=== PATIENT | female | born 2000 | race Hispanic/Latino ===

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

== ENCOUNTER 2021-04-26 12:45 | Emergency (ER) | payer MEDICAID ==
--- OUTSIDE RECORDS SUMMARY | 2021-04-26 12:48 | XMS REPORT | Continuity of Care Document ---
:2000 Author Organization [facility] t Address [address] [place] [address] Care Team Providers Name Role Phone Skye Aparicio Attending Clinician 2, Mfm Usg Room Attending Clinician Unavailable Hosea Aguirre Attending Clinician Luca Grier DO Attending Clinician 1, Us Room Attending Clinician Unavailable Lab/Pedi Attending Clinician Unavailable Doctor Unassigned, Name Attending Clinician Unavailable Problems Condition Condition Condition Status Onset Resolution Last Treating Co mments Source Name Details Category Date Date Treatment Clinician Date Vaginal Vaginal Problem Active [facility] Normal Normal Problem Active [facility] first first [facility] in third in third l trimester trimester Outp ati ent Clinics Encounter Encounter Problem Active [facility] for for [facility] surveillan surveillan Me moria ce of ce of l injectable injectable Ou tpati contracept contracept en t [facility] GBS (group GBS (group Problem Active [facility] Streptococ Streptococ Me moria cus cus l carrier), carrier), Outp ati +RV +RV ent culture, culture, Clinic s currently currently Surveillan Surveillan Diagnosis Active [facility] ce of ce of [facility] - contracept contracept Me moria shlomo shlomo l implant implant Outpati ent Clinics Allergies, Adverse Reactions, Alerts This patient has no known allergies or adverse reactions. Medications This patient has no known medications. Procedures This patient has no known procedures. Encounters Start End Encounter Admission Attending Care Care Encounter Source Date/Time Date/Time Type Type Clinicians Facility Department ID 2021-04-24 2021-04-24 Routine LETITIA Shields [id number] 12:52:33 13:26:57 Marlee N PATIENT RELATIONS LIAISON [id number] Visit REGIONAL [id number] MATERNAL [id number] & CHILD 107 [facility] 2021-04-03 2021-04-[address] Tech 2, [facility] [id number] 13:18:36 14:59:37 Visit [facility] [id number] CLINICS [id number] 2021-03-27 2021-03-27 Routine LETITIA Shields [id number] 13:06:43 13:52:18 Marlee N PATIENT RELATIONS LIAISON [id number] Visit REGIONAL [id number] MATERNAL [id number] & CHILD 107 [facility] 2021-03-13 2021-03-13 Telephone LETITIA Coleman [id number] 00:00:00 00:00:00 Oni Jc PATIENT RELATIONS LIAISON [id number] REGIONAL [id number] MATERNAL [id number] & CHILD 107 [facility] 2021-02-20 2021-02-20 Patient LETITIA Grier [id number] 00:00:00 00:00:00 Outreach [facility] [id number] [facility] [id number] PAVRICARDOON [id number] 2021-02-19 2021-02-19 Routine LETITIA Shields [id number] 15:13:06 15:44:33 Marlee N PATIENT RELATIONS LIAISON [id number] Visit REGIONAL [id number] MATERNAL [id number] & CHILD 107 [facility] 2021-02-16 2021-02-16 Telephone LETITIA Shields [id number] 00:00:00 00:00:00 Marlee N PATIENT RELATIONS LIAISON [id number] REGIONAL [id number] MATERNAL [id number] & CHILD 107 [facility] 2021-02-09 2021-02-[address] 1, Kira [facility] [id number] 12:59:19 13:44:19 Visit Us Room PATIENT RELATIONS LIAISON 350.1.13.10 REGIONAL [id number] MATERNAL [id number] & CHILD 369 [facility] 2021-02-09 2021-02-[address] Tech Lab/Maria M [facility] [id number] 13:36:38 13:36:47 Visit [facility] PATIENT RELATIONS LIAISON 350.1.13.10 REGIONAL [id number] MATERNAL [id number] & CHILD 125 [facility] 2021-02-06 2021-02-06 Routine Cornelius [facility] [id number] 12:46:38 13:02:53 Marlee N PATIENT RELATIONS LIAISON 350.1.13.10 Visit REGIONAL [id number] MATERNAL [id number] & CHILD 107 [facility] 2020-12-14 2020-12-14 Telephone Cornelius [facility] [id number] 00:00:00 00:00:00 Marlee N PATIENT RELATIONS LIAISON [id number] REGIONAL [id number] MATERNAL [id number] & CHILD 107 [facility] 2020-12-12 2020-12-12 [facility] [id number] 14:00:56 14:47:42 Marlee N PATIENT RELATIONS LIAISON 350.1.13.10 Visit REGIONAL [id number] MATERNAL [id number] & CHILD 107 [facility] 2020-12-12 2020-12-12 Orders Doctor KENNEDY [id number] 00:00:00 00:00:00 Only Unassigned, ELVIRA 350.1.13.10 Cornelia [facility] [id number] [id number] 2019-01-06 2019-01-06 [facility] [id number] [facility] 14:30:00 14:30:00 t [facility] 2018-12-16 2018-12-16 [facility] [id number] [address] 14:30:00 14:30:00 t [facility] 2018-12-10 2018-12-10 [facility] [id number] [address] 11:09:00 11:09:00 t [facility] 2018-04-06 2018-04-06 [facility] [id number] [address] 14:45:00 14:45:00 t [facility] Results This patient has no known results.
[2021-04-26 14:34] LABS: SARS-COV-2 RT PCR NEGATIVE (NEGATIVE)
--- NOTE | 2021-04-26 15:02 | ER ---
Nurse's Notes [facility] Name: Fernanda Morris Age: 20 yrs Sex: Female : 2000 Arrival Date: 04/26/2021 Time: 12:49 Bed 18 Private MD: Diagnosis: Acute pharyngitis Presentation: 04/26 12:51 Chief complaint: Patient states: congestion, sore throat, headache, N/V since ca1 yesterday. 6 months . Coronavirus screen: Client denies travel out of the [place] in the last 14 days. congestion, headache, nausea, sore throat, vomiting. Client presents with at least one sign or symptom that may indicate coronavirus-19. Standard/surgical mask placed on the client. Provider contacted for isolation considerations. Ebola Screen: Patient negative for fever greater than or equal to 101.5 degrees Fahrenheit, and additional compatible Ebola Virus Disease symptoms Patient denies exposure to infectious person. Patient denies travel to an Ebola-affected area in the 21 days before illness onset. No symptoms or risks identified at this time. Initial Sepsis Screen: Does the patient meet any 2 criteria? No. Patient's initial sepsis screen is negative. Does the patient have a suspected source of infection? No. Patient's initial sepsis screen is negative. Risk Assessment: Do you want to hurt yourself or someone else? Patient reports no desire to harm self or others. Onset of symptoms was April 26, 2021. 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 Flu vaccine is not up to date. - Social history:: Smoking status: Patient/guardian denies using tobacco, Stopped _ months ago 6. Screenin:34 Abuse screen: Denies threats or abuse. Denies injuries from another. Nutritional ld1 screening: No deficits noted. Tuberculosis screening: No symptoms or risk factors identified. Fall Risk None identified. Assessment: 13:34 General: Appears in no apparent distress. comfortable, Behavior is calm, cooperative, ld1 appropriate for age. Pain: Denies pain. Neuro: Level of Consciousness is awake, alert, obeys commands, Oriented to person, place, time, situation. Cardiovascular: Capillary refill < 3 seconds Patient's skin is warm and dry. Cardiovascular:. Respiratory: Airway is patent Respiratory effort is even, unlabored, Respiratory pattern is regular, symmetrical, Breath sounds are clear bilaterally. GI: Abdomen is round Pt states she is 6 months . Reports nausea, vomiting. : No signs and/or symptoms were reported regarding the genitourinary system. EENT: Throat is reddened. Derm: No signs and/or symptoms reported regarding the dermatologic system. Musculoskeletal: No signs and/or symptoms reported regarding the musculoskeletal system. 14:26 Reassessment: No changes from previously documented assessment. Patient and/or family ld1 updated on plan of care and expected duration. Pain level reassessed. Patient is alert, oriented x 3, equal unlabored respirations, skin warm/dry/pink. Laying in bed with family at bedside. Waiting on results. Denies concerns at this time. Patient denies pain at this time. 15:10 Reassessment: No changes from previously documented assessment. Patient and/or family ld1 updated on plan of care and expected duration. Pain level reassessed. Patient is alert, oriented x 3, equal unlabored respirations, skin warm/dry/pink. Vital Signs: 12:51 BP 108 / 63; Pulse 93; Resp 16 S; Temp 97.7; Pulse Ox 99% on R/A; Weight 93.44 kg (R); ca1 Height 5 ft. 8 in. (172.72 cm) (R); Pain 0/10; 13:04 BP 104 / 62; Pulse 97; Resp 16; Pulse Ox 98% on R/A; vg1 14:26 BP 116 / 82; Pulse 86; Resp 18; Pulse Ox 100% on R/A; ld1 14:44 BP 137 / 74; Pulse 98; Pulse Ox 100% ; mb4 15:10 BP 128 / 78; Pulse 92; Resp 18; Pulse Ox 100% on R/A; ld1 12:51 Body Mass Index 31.32 (93.44 kg, 172.72 cm) ca1 ED Course: 12:49 Patient arrived in ED. ds1 12:53 Triage completed. ca1 12:54 Ming Brooks PA is PHCP. [facility] 12:54 Ambrocio Lopez MD is Attending Physician. [facility] 12:54 Arm band placed on right wrist. ca1 13:34 Tiffanie Knutson, RN is Primary Nurse. ld1 13:34 Patient has correct armband on for positive identification. Bed in low position. Call ld1 light in reach. Pulse ox on. NIBP on. Door closed. Noise minimized. Warm blanket given. 13:50 COVID swab sent to lab. Flu and/or RSV swab sent to lab. Strep swab sent to lab. mb4 15:11 No provider procedures requiring assistance completed. Patient did not have IV access ld1 during this emergency room visit. Administered Medications: No medications were administered Outcome: 15:02 Discharge ordered by . [facility] 15:11 Discharged to home ambulatory. ld1 15:11 Condition: stable 15:11 Discharge instructions given to patient, family, Instructed on discharge instructions, follow up and referral plans. medication usage, Demonstrated understanding of instructions, follow-up care, medications. 15:12 Patient left the ED. ld1 Signatures: Ming Brooks PA PA [facility] Diana Theodore ds1 Alejandra Ramirez 4 Nicole Helm RN RN ca1 Estephania Fuentes RN RN vg1 Tiffanie Knutson, RN RN ld1 Corrections: (The following items were deleted from the chart) 12:54 12:51 Chief complaint: Patient states: congestion, sore throat, headache, N/V since ca1 yesterday ca1 13:38 13:34 GI: Abdomen is round Pt states she is 6 months . ld1 ld1 14:28 14:26 Pulse 99bpm; Resp 24bpm; Pulse Ox 100% RA; ld1 ld1
--- NOTE | 2021-04-26 15:03 | EDPHYS ---
Physician Documentation [facility] Name: Fernanda Morris Age: 20 yrs Sex: Female : 2000 Arrival Date: 04/26/2021 Time: 12:49 Bed 18 Private MD: ED Physician Ambrocio Lopez HPI: 04/26 13:02 This 20 yrs old Female presents to ER via Ambulatory with complaints of Sore jmm Throat, Congestion. 13:02 The patient presents with sore throat. Onset: The symptoms/episode began/occurred jmm gradually, 1 day(s) ago. Modifying factors: The symptoms are alleviated by nothing, the symptoms are aggravated by nothing. Associated signs and symptoms: Pertinent positives: rhinorrhea, Pertinent negatives fever. This is a 20 year old female with no chronic medical conditions that presents to the ED with complaints of sore throat and sinus congestion beginning approx 1 days ago. Denies shortness of breath. . 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 Flu vaccine is not up to date. - Social history:: Smoking status: Patient/guardian denies using tobacco, Stopped _ months ago 6. ROS: 13:02 Constitutional: Positive for jmm 13:02 Constitutional: Positive for chills. 13:02 ENT: Positive for sinus congestion, sore throat. 13:02 All other systems are negative. Exam: 13:02 Constitutional: This is a well developed, well nourished patient who is awake, alert, jmm and in no acute distress. Head/Face: atraumatic. Eyes: EOMI, no conjunctival erythema appreciated ENT: Moist Mucus Membranes Neck: Trachea midline, Supple 13:02 Cardiovascular: Regular rate and rhythm. No edema appreciated Respiratory: Normal respirations, no respiratory distress appreciated Abdomen/GI: Non distended, soft Back: Normal ROM Skin: General appearance color normal MS/ Extremity: Moves all extremities, no obvious deformities appreciated, no edema noted to the lower extremities Neuro: Awake and alert, normal gait Psych: Behavior is normal, Mood is normal, Patient is cooperative and pleasant 13:02 ENT: Posterior pharynx: Tonsils: enlarged on the right, enlarged on the left, erythema, that is mild. Vital Signs: 12:51 BP 108 / 63; Pulse 93; Resp 16 S; Temp 97.7; Pulse Ox 99% on R/A; Weight 93.44 kg (R); ca1 Height 5 ft. 8 in. (172.72 cm) (R); Pain 0/10; 13:04 BP 104 / 62; Pulse 97; Resp 16; Pulse Ox 98% on R/A; vg1 14:26 BP 116 / 82; Pulse 86; Resp 18; Pulse Ox 100% on R/A; ld1 14:44 BP 137 / 74; Pulse 98; Pulse Ox 100% ; mb4 15:10 BP 128 / 78; Pulse 92; Resp 18; Pulse Ox 100% on R/A; ld1 12:51 Body Mass Index 31.32 (93.44 kg, 172.72 cm) ca1 MDM: 13:[address] [facility] 15:01 Data reviewed: vital signs, nurses notes. Counseling: I had a detailed discussion with melvin the patient and/or guardian regarding: the historical points, exam findings, and any diagnostic results supporting the discharge/admit diagnosis, the need for outpatient follow up, to return to the emergency department if symptoms worsen or persist or if there are any questions or concerns that arise at home. 04/26 13:25 Order name: Strep; Complete Time: 14:14 [facility] 04/26 14:14 Order name: Throat Culture [facility] 04/26 14:34 Order name: COVID-19/FLU A+B; Complete Time: 14:50 EDME Administered Medications: No medications were administered Disposition: 15:52 Co-signature as Attending Physician, Ambrocio Lopez MD I agree with the assessment and kdr plan of care. Disposition: 04/26/21 15:02 Discharged to Home. Impression: Acute pharyngitis. - Condition is Stable. - Discharge Instructions: Pharyngitis. - Prescriptions for Amoxicillin 875 mg Oral Tablet - take 1 tablet by ORAL route every 12 hours for 10 days; 20 tablet. - Medication Reconciliation Form, Thank You Letter, Antibiotic Education, Prescription Opioid Use form. - Follow up: Private Physician; When: 2 - 3 days; Reason: Recheck today's complaints, Continuance of care, Re-evaluation by your physician. Signatures: Dispatcher [employer] EDMS Ambrocio Lopez MD MD kdr Mickail, Joel, PA PA jmm Acob, Cheryl RN RN ca1 Tiffanie Knutson RN RN ld1 Corrections: (The following items were deleted from the chart) 13:51 13:26 CORONAVIRUS+MR.LAB.BRZ ordered. EDMS EDMS 13:52 13:26 Influenza Screen (A \T\ B)+BA.LAB.BRZ ordered. EDME EDMS 15:12 15:02 04/26/2021 15:02 Discharged to Home. Impression: Acute pharyngitis. Condition is ld1 Stable. Forms are Medication Reconciliation Form, Thank You Letter, Antibiotic Education, Prescription Opioid Use. Follow up: Private Physician; When: 2 - 3 days; Reason: Recheck today's complaints, Continuance of care, Re-evaluation by your physician. melvin
[2021-04-26 15:25] VITALS: TEMP 97.7
[2021-04-26 15:28] VITALS: O2SAT 100
[2021-04-26 15:32] VITALS: BP 128/78
== END 2021-04-26 15:12 | disposition home or self-care (01) ==
LOC: ER 12:45
DX: J02.9 Acute pharyngitis, unspecified (principal); Z20.822 Contact with and (suspected) exposure to COVID-19
CPT/HCPCS: 87070; 87081; 0240U; 99283

== ENCOUNTER 2024-03-28 19:55 | Emergency (ER) | payer OTHER, SELFPAY ==
--- OUTSIDE RECORDS SUMMARY | 2024-03-28 19:59 | XMS REPORT | Continuity of Care Document ---
Author Name Unknown Address [address] [facility] [place] [address] [facility] Address [address] 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 Name Role Phone ONI PFEIFFER Primary Care Physician UnaSocorro Dumont Attending Clinician [phone] Unknown, Attending Attending Clinician Unavailab SOCORRO Foster Attending Clinician Unavailable Doctor Unassigned, [place] Attending Clinician U Seferino Wolfe MD Attending Clinician [phone] SEFERINO MILLER Attending Clinician Unavailable ADIS SHULTZ Attending Clinician Unavailable Marlee Aparicio Attending Clinician [phone] MARLEE WANG Attending Clinician UnavailONI Chris Attending Clinician Unavailab [facility] Attending Clinician Un available Juli Jones MD Attending Clinician [phone], [facility] Room Attending Clinician UnavailRuddy Porras MD Attending Clinician [phone] Oni Aguirre Attending Clinician + [phone] Lui Grier DO Attending Clinician [phone]- [phone], [facility] Room Attending Clinician Unavailab Con MCDONALD, Samaniego Attending Clinician + [facility] Unavailpantera Villaseñorner MSN, Ida Champion Attending Clinician [phone]- [phone] Visit, [facility] Nurse Attending Clinician Verenice ilable Payers Payer Name Policy Type Policy Number Effective Date Expirati on Date Source Problems Condition Name Condition Details Condition Category Status Onset Date Resolution Date Last Treatment Date Treating Clinician Comments Source Candidiasi s of vagina during Candidiasi s of vagina during Disease Active 3-22 00:00: 00 [facility] History of GBS (group B streptococ cus) UTI, currently History of GBS (group B streptococ cus) UTI, currently Disease Active 1-14 00:00: 00 [facility] acute hospital Cessation of tobacco use in previous 12 months Cessation of tobacco use in previous 12 months Disease Active -12 00:00: 00 [facility] acute hospital Multiparit y Multiparit y Disease Active 12 00:00: 00 [facility] acute hospital BMI 29.0-29.9, adult BMI 29.0-29.9, adult Disease Active 12 00:00: 00 [facility] acute hospital Supervisio n of high-risk , third trimester Supervisio n of high-risk , third trimester Disease Active 12 00:00: 00 [facility] acute hospital BMI 29.0-29.9, adult BMI 29.0-29.9, adult Disease Active 12 00:00: 00 [facility] acute hospital Encounter for surveillan ce of contracept cristiano, unspecifie d contracept shlomo Encounter for surveillan ce of contracept cristiano, unspecifie d contracept shlomo Disease Active 06-19 00:00: 00 [facility] acute hospital Nexplanon removal Nexplanon removal Disease Active 06-19 00:00: 00 [facility] acute hospital Encounter for other general counseling or advice on contracept ion Encounter for other general counseling or advice on contracept ion Disease Active 06-19 00:00: 00 [facility] acute hospital BMI 28.0-28.9, adult BMI 28.0-28.9, adult Disease Active 06-19 00:00: 00 [facility] acute hospital Tobacco use disorder Tobacco use disorder Disease Active 06-19 00:00: 00 [facility] acute hospital Vaginal delivery Vaginal delivery Problem Active [facility] Normal first in third trimester Normal first in third trimester Problem Active [facility] Encounter for surveillan ce of injectable contracept shlomo Encounter for surveillan ce of injectable contracept shlomo Problem Active [facility] GBS (group B Streptococ cus carrier), +RV culture, 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), +RV culture, currently Problem Active [facility] Surveillan ce of contracept shlomo implant Surveillan ce of contracept shlomo implant Diagnosis Active [facility] No known active problems No known active problems Disease General acute hospital Allergies, Adverse Reactions, Alerts Allergy Name Allergy Type Status Severity Reaction(s) Onset Date Inactive Date Treating Clinician Comments Source NO KNOWN ALLERGIE S Drug Class Active [facility] acute hospital Social History Social Habit Start Date Stop Date Quantity Comments Source ASSERTION 2020-11-30 00:00:00 [facility] Exposure to SARS-CoV-2 (event) Not sure [facility] Alcohol intake 2024-02-15 00:00:00 2024-02-15 00:00:00 Ex-drinker (finding) [facility] History of Social function 2024-02-15 00:00:00 2024-02-15 00:00:00 [facility] Cigarettes smoked current (pack per day) - Reported 2024-01-02 00:00:00 2024-01-02 00:00:00 [facility] Tobacco use and exposure 2024-01-02 00:00:00 2024-01-02 00:00:00 Smokeless tobacco non-user [facility] History SDOH Alcohol Std Drinks 2020-12-12 00:00:00 2020-12-12 00:00:00 99 [facility] History SDOH Alcohol Binge 2020-12-12 00:00:00 2020-12-12 00:00:00 99 [facility] History of tobacco use 2020-12-09 00:00:00 Cigarette Smoker [facility] History SDOH Alcohol Frequency 2020-06-19 00:00:00 2020-06-19 00:00:00 3 [facility] Sex Assigned At 2001 00:00:00 2000 00:00:00 [facility] Smoking Status Start Date Stop Date Source Ex-smoker 2024-01-02 00:00:00 2024-01-02 00[facility]00[facility]00 [facility] Current every day smoker 2020-10-20 00:00:00 [facility] Never smoker [facility] Medications Ordered Medication Name Filled Medication Name Start Date Stop Date Current Medication? Ordering Clinician Indication Dosage Frequency Signature (SIG) Comments Components Source methylPREDN ISolone (MEDROL, ALYSSA,) 4 mg tablets 02-14 00:00: 00 Yes [id number] follow package directions [facility] acute hospital amoxicillin -clavulanat e (AUGMENTIN) 875-125 mg per tablet 02-14 00:00: 00 02-25 04:59 :00 Yes [id number] 1{tbl} Take 1 tablet by mouth in the morning and 1 tablet in the evening. Do all this for 10 days. [facility] acute hospital dexamethaso ne (DECADRON) injection 10 mg 01-02 19:30: 00 01-02 18:42 :00 No [id number] 10mg [facility] Clotrimazol e 1 % Lotn 01-02 00:00: 00 Yes [id number] Apply to area(s) every 72 (seventy-t wo) hours. [facility] acute hospital fluconazole (DIFLUCAN) 150 mg tablet 01-02 00:00: 00 01-25 05:59 :00 Yes [id number] 150mg Take 1 tablet by mouth weekly for 4 doses. [facility] acute hospital levocetiriz ine 5 mg tablet 07-08 00:00: 00 Yes [id number] 5mg Take 1 tablet by mouth every evening. [facility] acute hospital fluconazole 150 mg tablet 02-19 00:00: 00 03-27 00:00 :00 No TAKE 1 TABLET BY MOUTH ONCE NOW FOR 1 DOSE. [facility] acute hospital ampicillin 500 mg capsule 1-14 00:00: 00 12-25 05:59 :00 No [id number] 500mg Take 1 capsule by mouth every 6 (six) hours for 10 days. [facility] acute hospital CETIRIZINE HCL (CETIRIZINE ORAL) 12-12 20:27: 24 12-12 00:00 :00 No Take by mouth. [facility] acute hospital PNV 67-iron ps-folate no.1-dha (VITAFOL ULTRA) 29 mg iron- 1 mg-200 mg Cap 12-12 00:00: 00 Yes [id number] 1{capsu le} Take 1 capsule by mouth daily. [facility] acute hospital PNV 67-iron ps-folate no.1-dha (VITAFOL ULTRA) 29 mg iron- 1 mg-200 mg Cap 12-12 00:00: 00 Yes [id number] 1{capsu le} Take 1 capsule by mouth daily. [facility] acute hospital norgestimat e-ethinyl estradioL (ORTHO TRI-CYCLEN LO, 28,) 0.18/0.215/ 0.25 mg-25 mcg tablet 2019-12 00:00: 00 12-12 00:00 :00 No [id number] 1{tbl} Take 1 tablet by mouth daily. [facility] acute hospital CETIRIZINE HCL (CETIRIZINE ORAL) 720 19:22: 33 Yes Take by mouth. [facility] acute hospital amoxicillin 875 mg tablet 2018-12 1 00:00: 00 12-12 00:00 :00 No [id number] 875mg Take 1 tablet by mouth 2 (two) times daily. [facility] acute hospital CETIRIZINE HCL (CETIRIZINE ORAL) 9- 21:29: 45 Yes Take by mouth. [facility] acute hospital Immunizations Ordered Immunization Name Filled Immunization Name Date Status Comments Source TDAP 2021-06-06 00:00:00 Completed [facility] TDAP 2021-06-06 00:00:00 Completed [facility] TDAP 2021-06-06 00:00:00 Completed [facility] TDAP 2021-06-06 00:00:00 Completed [facility] TDAP 2021-06-06 00:00:00 Completed [facility] TDAP 2021-06-06 00:00:00 Completed [facility] TDAP 2021-06-06 00:00:00 Completed [facility] TDAP 2021-06-06 00:00:00 Completed [facility] TDAP Unknown Completed [facility] TDAP Unknown Completed [facility] TDAP Unknown Completed [facility] TDAP Unknown Completed [facility] TDAP Unknown Completed [facility] Vital Signs Vital Name Observation Time Observation Value Comments S ource Systolic blood pressure 2024-02-15 22:07:00 125 mm[Hg] [facility] Diastolic blood pressure 2024-02-15 22:07:00 78 mm[Hg] [facility] Heart rate 2024-02-15 22:07:00 75 /min [facility] Body temperature 2024-02-15 22:07:00 36.56 Leann [facility] Respiratory rate 2024-02-15 22:07:00 16 /min [facility] Body height 2024-02-15 22:07:00 172.7 cm [facility] Body weight 2024-02-15 22:07:00 97.387 kg [facility] BMI 2024-02-15 22:07:00 32.65 kg/m2 [facility] Oxygen saturation in Arterial blood by Pulse oximetry 2024-02-15 22:07:00 99 /min [facility] Systolic blood pressure 2024-01-02 18:26:00 119 mm[Hg] [facility] Diastolic blood pressure 2024-01-02 18:26:00 82 mm[Hg] [facility] Heart rate 2024-01-02 18:26:00 66 /min [facility] Body temperature 2024-01-02 18:26:00 36.67 Leann [facility] Respiratory rate 2024-01-02 18:26:00 16 /min [facility] Body weight 2024-01-02 18:26:00 96.163 kg [facility] Oxygen saturation in Arterial blood by Pulse oximetry 2024-01-02 18:26:00 98 /min [facility] Systolic blood pressure 2021-07-24 20:09:00 105 mm[Hg] [facility] Diastolic blood pressure 2021-07-24 20:09:00 70 mm[Hg] [facility] Heart rate 2021-07-24 20:09:00 86 /min [facility] Body temperature 2021-07-24 20:09:00 36.22 Leann [facility] Respiratory rate 2021-07-24 20:09:00 18 /min [facility] Body height 2021-07-24 20:09:00 172.7 cm [facility] Body weight 2021-07-24 20:09:00 98.572 kg [facility] BMI 2021-07-24 20:09:00 33.04 kg/m2 [facility] Systolic blood pressure 2021-07-08 21:00:00 107 mm[Hg] [facility] Diastolic blood pressure 2021-07-08 21:00:00 72 mm[Hg] [facility] Heart rate 2021-07-08 21:00:00 91 /min [facility] Body temperature 2021-07-08 21:00:00 36.78 Leann [facility] Respiratory rate 2021-07-08 21:00:00 16 /min [facility] Body height 2021-07-08 21:00:00 172.7 cm [facility] Body weight 2021-07-08 21:00:00 96.163 kg [facility] BMI 2021-07-08 21:00:00 32.23 kg/m2 [facility] Oxygen saturation in Arterial blood by Pulse oximetry 2021-07-08 21:00:00 98 /min [facility] Systolic blood pressure 2021-07-03 19:30:00 117 mm[Hg] [facility] Diastolic blood pressure 2021-07-03 19:30:00 72 mm[Hg] [facility] Heart rate 2021-07-03 19:30:00 99 /min [facility] Body temperature 2021-07-03 19:30:00 37 Leann [facility] Respiratory rate 2021-07-03 19:30:00 16 /min [facility] Body height 2021-07-03 19:30:00 172.7 cm [facility] Body weight 2021-07-03 19:30:00 96.344 kg [facility] BMI 2021-07-03 19:30:00 32.30 kg/m2 [facility] Systolic blood pressure 2021-06-19 19:05:00 124 mm[Hg] [facility] Diastolic blood pressure 2021-06-19 19:05:00 73 mm[Hg] [facility] Heart rate 2021-06-19 19:05:00 96 /min [facility] Body temperature 2021-06-19 19:05:00 36.56 Leann [facility] Respiratory rate 2021-06-19 19:05:00 16 /min [facility] Body height 2021-06-19 19:05:00 172.7 cm [facility] Body weight 2021-06-19 19:05:00 95.981 kg [facility] BMI 2021-06-19 19:05:00 32.17 kg/m2 [facility] Systolic blood pressure 2021-06-06 18:34:00 118 mm[Hg] [facility] Diastolic blood pressure 2021-06-06 18:34:00 68 mm[Hg] [facility] Heart rate 2021-06-06 18:34:00 79 /min [facility] Body temperature 2021-06-06 18:34:00 36.06 Leann [facility] Respiratory rate 2021-06-06 18:34:00 16 /min [facility] Body height 2021-06-06 18:34:00 172.7 cm [facility] 2021-06-06 18:34:00 95.573 [facility] BMI 2021-06-06 18:34:00 32.04 kg/m2 [facility] Systolic blood pressure 2021-05-15 18:25:00 115 mm[Hg] [facility] Diastolic blood pressure 2021-05-15 18:25:00 72 mm[Hg] [facility] Heart rate 2021-05-15 18:25:00 83 /min [facility] temperature 2021-05-15 18:25:00 36.89 Leann [facility] Respiratory rate 2021-05-15 18:25:00 16 /min [facility] Body height 2021-05-15 18:25:00 172.7 cm [facility] Body weight 2021-05-15 18:25:00 93.016 kg [facility] BMI 2021-05-15 18:25:00 31.18 kg/m2 [facility] Systolic blood pressure 2021-04-24 18:08:00 125 mm[Hg] [facility] Diastolic blood pressure 2021-04-24 18:08:00 72 mm[Hg] [facility] Heart rate 2021-04-24 18:08:00 82 /min [facility] Body temperature 2021-04-24 18:08:00 37.11 Leann [facility] Respiratory rate 2021-04-24 18:08:00 16 /min [facility] Body height 2021-04-24 18:08:00 172.7 cm [facility] weight 2021-04-24 18:08:00 93.713 kg [facility] BMI 2021-04-24 18:08:00 31.41 kg/m2 [facility] Systolic blood pressure 2021-04-24 18:08:00 125 mm[Hg] [facility] Diastolic blood pressure 2021-04-24 18:08:00 72 mm[Hg] [facility] Heart rate 2021-04-24 18:08:00 82 /min [facility] Body temperature 2021-04-24 18:08:00 37.11 Leann [facility] Respiratory rate 2021-04-24 18:08:00 16 /min [facility] Body height 2021-04-24 18:08:00 172.7 cm [facility] Body weight 2021-04-24 18:08:00 93.713 kg [facility] BMI 2021-04-24 18:08:00 31.41 kg/m2 [facility] Systolic blood pressure 2021-03-27 18:25:00 110 mm[Hg] [facility] Diastolic blood pressure 2021-03-27 18:25:00 67 mm[Hg] [facility] Heart rate 2021-03-27 18:25:00 70 /min [facility] Body temperature 2021-03-27 18:25:00 36.78 Leann [facility] Respiratory rate 2021-03-27 18:25:00 16 /min [facility] Body height 2021-03-27 18:25:00 170.2 cm [facility] Body weight 2021-03-27 18:25:00 90.804 kg [facility] BMI 2021-03-27 18:25:00 31.35 kg/m2 [facility] Systolic blood pressure 2021-03-27 18:25:00 110 mm[Hg] [facility] Diastolic blood pressure 2021-03-27 18:25:00 67 mm[Hg] [facility] Heart rate 2021-03-27 18:25:00 70 /min [facility] Body temperature 2021-03-27 18:25:00 36.78 Leann [facility] Respiratory rate 2021-03-27 18:25:00 16 /min [facility] Body height 2021-03-27 18:25:00 170.2 cm [facility] Body weight 2021-03-27 18:25:00 90.804 kg [facility] BMI 2021-03-27 18:25:00 31.35 kg/m2 [facility] Systolic blood pressure 2021-02-19 20:25:00 113 mm[Hg] [facility] Diastolic blood pressure 2021-02-19 20:25:00 69 mm[Hg] [facility] Heart rate 2021-02-19 20:25:00 74 /min [facility] Body temperature 2021-02-19 20:25:00 36.44 Leann [facility] Respiratory rate 2021-02-19 20:25:00 16 /min [facility] Body height 2021-02-19 20:25:00 170.2 cm [facility] Body weight 2021-02-19 20:25:00 89.449 kg [facility] BMI 2021-02-19 20:25:00 30.89 kg/m2 [facility] Systolic blood pressure 2021-02-19 20:25:00 113 mm[Hg] [facility] Diastolic blood pressure 2021-02-19 20:25:00 69 mm[Hg] [facility] Heart rate 2021-02-19 20:25:00 74 /min [facility] Body temperature 2021-02-19 20:25:00 36.44 Leann [facility] Respiratory rate 2021-02-19 20:25:00 16 /min [facility] Body height 2021-02-19 20:25:00 170.2 cm [facility] Body weight 2021-02-19 20:25:00 89.449 kg [facility] BMI 2021-02-19 20:25:00 30.89 kg/m2 [facility] Systolic blood pressure 2021-02-06 18:50:00 122 mm[Hg] [facility] Diastolic blood pressure 2021-02-06 18:50:00 74 mm[Hg] [facility] Heart rate 2021-02-06 18:50:00 86 /min [facility] Body temperature 2021-02-06 18:50:00 37.06 Leann [facility] Respiratory rate 2021-02-06 18:50:00 16 /min [facility] Body height 2021-02-06 18:50:00 172.7 cm [facility] Body weight 2021-02-06 18:50:00 89.767 kg [facility] BMI 2021-02-06 18:50:00 30.09 kg/m2 [facility] Systolic blood pressure 2021-02-06 18:50:00 122 mm[Hg] [facility] Diastolic blood pressure 2021-02-06 18:50:00 74 mm[Hg] [facility] Heart rate 2021-02-06 18:50:00 86 /min [facility] Body temperature 2021-02-06 18:50:00 37.06 Leann [facility] Respiratory rate 2021-02-06 18:50:00 16 /min [facility] Body height 2021-02-06 18:50:00 172.7 cm [facility] Body weight 2021-02-06 18:50:00 89.767 kg [facility] BMI 2021-02-06 18:50:00 30.09 kg/m2 [facility] Systolic blood pressure 2020-12-12 20:14:00 119 mm[Hg] [facility] Diastolic blood pressure 2020-12-12 20:14:00 71 mm[Hg] [facility] Heart rate 2020-12-12 20:14:00 72 /min [facility] Body temperature 2020-12-12 20:14:00 36.94 Leann [facility] Respiratory rate 2020-12-12 20:14:00 16 /min [facility] Body height 2020-12-12 20:14:00 172.7 cm [facility] Body weight 2020-12-12 20:14:00 89.585 kg [facility] BMI 2020-12-12 20:14:00 30.03 kg/m2 [facility] Systolic blood pressure 2020-12-12 20:14:00 119 mm[Hg] [facility] Diastolic blood pressure 2020-12-12 20:14:00 71 mm[Hg] [facility] Heart rate 2020-12-12 20:14:00 72 /min [facility] Body temperature 2020-12-12 20:14:00 36.94 Leann [facility] Respiratory rate 2020-12-12 20:14:00 16 /min [facility] Body height 2020-12-12 20:14:00 172.7 cm [facility] Body weight 2020-12-12 20:14:00 89.585 kg [facility] BMI 2020-12-12 20:14:00 30.03 kg/m2 [facility] Systolic blood pressure 2020-11-03 19:14:00 116 mm[Hg] [facility] Diastolic blood pressure 2020-11-03 19:14:00 71 mm[Hg] [facility] Heart rate 2020-11-03 19:14:00 83 /min [facility] Body temperature 2020-11-03 19:14:00 36.67 Leann [facility] Respiratory rate 2020-11-03 19:14:00 16 /min [facility] Body height 2020-11-03 19:14:00 172.7 cm [facility] Body weight 2020-11-03 19:14:00 87.363 kg [facility] BMI 2020-11-03 19:14:00 29.28 kg/m2 [facility] Systolic blood pressure 2020-10-20 17:27:00 113 mm[Hg] [facility] Diastolic blood pressure 2020-10-20 17:27:00 75 mm[Hg] [facility] Heart rate 2020-10-20 17:27:00 58 /min [facility] Body temperature 2020-10-20 17:27:00 37.11 Leann [facility] Respiratory rate 2020-10-20 17:27:00 16 /min [facility] Body height 2020-10-20 17:27:00 172.7 cm [facility] Body weight 2020-10-20 17:27:00 86.9 kg [facility] BMI 2020-10-20 17:27:00 29.13 kg/m2 [facility] Systolic blood pressure 2020-06-22 18:17:00 117 mm[Hg] [facility] o [facility] Diastolic blood pressure 2020-06-22 18:17:00 74 mm[Hg] [facility] Heart rate 2020-06-22 18:17:00 91 /min [facility] Body temperature 2020-06-22 18:17:00 36.94 Leann [facility] Respiratory rate 2020-06-22 18:17:00 16 /min [facility] Body height 2020-06-22 18:17:00 172.7 cm [facility] Body weight 2020-06-22 18:17:00 84.454 kg [facility] BMI 2020-06-22 18:17:00 28.31 kg/m2 [facility] Systolic blood pressure 2020-06-19 19:04:00 116 mm[Hg] [facility] Diastolic blood pressure 2020-06-19 19:04:00 78 mm[Hg] [facility] Heart rate 2020-06-19 19:04:00 64 /min [facility] Body temperature 2020-06-19 19:04:00 37.11 Leann [facility] Respiratory rate 2020-06-19 19:04:00 16 /min [facility] Body height 2020-06-19 19:04:00 172.7 cm [facility] Body weight 2020-06-19 19:04:00 84.55 kg [facility] BMI 2020-06-19 19:04:00 28.34 kg/m2 [facility] Procedures Procedure Date / Time Performed Performing Clinicia n Source POCT MOLECULAR STREP 2024-01-02 18:24:00 Unknown, Atte nding [facility] ASSIGNMENT OF BENEFITS 2024-01-02 17:59:44 Docto r Unassigned, [place] [facility] POCT URINALYSIS GLUCOSE & PROTEIN 2021-07-24 20:12:00 Marlee Wang [facility] POCT URINALYSIS W/O SPECIFIC GRAVITY 2021-07-03 19:30:00 Marlee Wang [facility] POCT URINALYSIS W/O SPECIFIC GRAVITY 2021-06-19 19:06:00 Marlee Wang [facility] ASSIGNMENT OF BENEFITS 2021-06-19 19:01:13 Docto r Unassigned, [place] [facility] POCT URINALYSIS W/O SPECIFIC GRAVITY 2021-06-06 18:35:00 Marlee Wang [facility] TDAP VACCINE, >11 YRS, IM 2021-06-06 18:19:38 Marlee Wang [facility] POCT URINALYSIS W/O SPECIFIC GRAVITY 2021-05-15 18:27:00 Marlee Wang [facility] POCT URINALYSIS W/O SPECIFIC GRAVITY 2021-04-24 18:09:00 Marlee Wang [facility] SECOND AND THIRD TRIMESTER ULTRASOUND 2021-04-03 19:15:00 Marlee Wang [facility] POCT URINALYSIS W/O SPECIFIC GRAVITY 2021-03-27 18:29:00 Marlee Wang [facility] POCT URINALYSIS W/O SPECIFIC GRAVITY 2021-02-19 20:27:00 Marlee Wang [facility] POCT URINALYSIS W/O SPECIFIC GRAVITY 2021-02-06 18:51:00 Marlee Wang [facility] REPORT OF 2020-12-12 06:01:00 Doctor Fran ghotra, [place] [facility] POCT TEST 2020-12-12 00:00:00 Mabel Pfeiffer [facility] POCT URINALYSIS W/O SPECIFIC GRAVITY 2020-12-12 00:00:00 Oni Pfeiffer [facility] POCT TEST 2020-11-03 00:00:00 Mabel Pfeiffer [facility] POCT TEST 2020-10-20 17:29:00 Mabel Pfeiffer [facility] ASSIGNMENT OF BENEFITS 2020-06-19 18:37:20 Docto r Unassigned, [place] [facility] Encounters Start Date/Time End Date/Time Encounter Type Admission Type Attending [facility] Care Facility Care Department Encounter ID Source 2024-02-15 17:00:00 2024-02-15 17:20:00 Urgent Care Socorro Pressley Unknown, Attending [facility] 1..840.114 350.1.13.10 4.2.7.2.686 [id number] General acute hospital 2024-02-15 17:00:00 2024-02-15 17:17:08 Outpatient R PRESSLEY SOCORRO [facility] [id number] General acute hospital 2024-01-08 00:00:00 2024-01-08 00:00:00 Patient Secure Msg Doctor Unassigned, [place] [id number] 350.1.13.10 4.2.7.2.686 [id number] General acute hospital 2024-01-04 00:00:00 2024-01-04 00:00:00 Telephone [facility]eferino Miller [facility] 1.840.114 350.1.13.10 4.2.7.2.686 [id number] General acute hospital 2024-01-02 12:00:00 2024-01-02 12:35:24 Outpatient R SEFERINO MILLER [facility] [id number] General acute hospital 2024-01-02 12:00:00 2024-01-02 12:35:24 Urgent Care Seferino Miller Unknown, Attending [facility] 1.840.114 350.1.13.10 4.2.7.2.686 [id number] General acute hospital 2024-01-02 00:00:00 2024-01-02 00:00:00 Orders Only Doctor Unassigned, [place] [id number] 350.1.13.10 4.2.7.2.686 [id number] General acute hospital 2021-07-24 14:50:54 2021-07-24 15:05:54 Routine Visit Marlee Wang [facility] & CHILD [facility] 1.840.114 350.1.13.10 4.2.7.2.686 [id number] General acute hospital 2021-07-24 15:00:00 2021-07-24 15:00:00 Outpatient R MARLEE WANG [facility] [id number] General acute hospital 2021-07-17 14:30:00 2021-07-17 14:30:00 Outpatient R ONI PFEIFFER [facility] [id number] General acute hospital 2021-07-10 12:45:00 2021-07-10 12:45:00 Outpatient R MARLEE WANG [facility] [id number] General acute hospital 2021-07-08 16:40:00 2021-07-08 16:40:00 Outpatient R [facility] [id number] General acute hospital 2021-07-08 15:13:14 2021-07-08 16:27:00 Urgent Care Provider, [facility] Juli Jones [facility] 1..114 350.1.13.10 4.2.7.2.686 [id number] General acute hospital 2021-07-03 14:21:42 2021-07-03 14:49:41 Routine Visit Marlee Wang [facility] [employer] [facility] & CHILD [facility] 1..114 350.1.13.10 4.2.7.2.686 [id number] General acute hospital 2021-07-03 14:15:00 2021-07-03 14:15:00 Outpatient R MARLEE WANG [facility] [id number] General acute hospital 2021-06-19 13:59:47 2021-06-19 14:19:50 Routine Visit Marlee Wang [facility] [employer] [facility] & CHILD [facility] 1.2.840.114 350.1.13.10 4.2.7.2.686 [id number] General acute hospital 2021-06-19 13:45:00 2021-06-19 13:45:00 Outpatient R MARLEE WANG [facility] [id number] General acute hospital 2021-06-19 00:00:00 2021-06-19 00:00:00 Orders Only Doctor Unassigned, [place] [facility] 1.2.840.114 350.1.13.10 4.2.7.2.686 [id number] General acute hospital 2021-06-06 13:13:50 2021-06-06 14:11:18 Routine Visit Marlee Wang [facility] [employer] [facility] MATERNAL & CHILD [facility] 1.2.840.114 350.1.13.10 4.2.7.2.686 [id number] General acute hospital 2021-06-06 13:30:00 2021-06-06 13:30:00 Outpatient R MARLEE WANG [facility] [id number] General acute hospital 2021-05-15 13:00:18 2021-05-15 13:39:02 Routine Visit Marlee Wang [facility] [employer] [facility] MATERNAL & CHILD [facility] 1.2.840.114 350.1.13.10 4.2.7.2.686 [id number] General acute hospital 2021-05-15 12:45:00 2021-05-15 12:45:00 Outpatient R MARLEE WANG [facility] [id number] General acute hospital 2021-04-24 12:52:33 2021-04-24 13:26:57 Routine Visit Marlee Wang [facility] [employer] [facility] MATERNAL & CHILD [facility] 1.2.840.114 350.1.13.10 4.2.7.2.686 [id number] 2021-04-24 12:52:33 2021-04-24 13:26:57 Routine Visit Marlee Wang [facility] [employer] [facility] & CHILD [facility] 1.2.840.114 350.1.13.10 4.2.7.2.686 [id number] General acute hospital 2021-04-24 13:00:00 2021-04-24 13:00:00 Outpatient R MARLEE WANG [facility] [id number] General acute hospital 2021-04-03 13:18:36 2021-04-03 14:59:37 Service Loss Control Consultant Visit 2, [facility] Us Room [facility] 1.2.840.114 350.1.13.10 4.2.7.2.686 [id number] 2021-04-03 13:18:36 2021-04-03 14:59:37 Service Loss Control Consultant Visit 2, [facility] Room Ruddy Baeza [facility] 1.2.840.114 350.1.13.10 4.2.7.2.686 [id number] General acute hospital 2021-04-03 13:00:00 2021-04-03 13:00:00 Outpatient P [facility] [id number] General acute hospital 2021-04-02 13:00:00 2021-04-02 13:00:00 Outpatient P [facility] [id number] General acute hospital 2021-03-27 13:06:43 2021-03-27 13:52:18 Routine Visit Marlee Wang [facility] [employer] [facility] & CHILD [facility] 1.2.840.114 350.1.13.10 4.2.7.2.686 [id number] 2021-03-27 13:06:43 2021-03-27 13:52:18 Routine Visit Marlee Wang [facility] [employer] [facility] MATERNAL & CHILD [facility] 1.2.840.114 350.1.13.10 4.2.7.2.686 [id number] General acute hospital 2021-03-27 13:00:00 2021-03-27 13:00:00 Outpatient MARLEE SHAY [facility] [id number] General acute hospital 2021-03-20 13:15:00 2021-03-20 13:15:00 Outpatient MARLEE SHAY [facility] [id number] General acute hospital 2021-03-13 00:00:00 2021-03-13 00:00:00 Telephone Oni Pfeiffer [facility] [employer] [facility] & CHILD [facility] 1.2.840.114 350.1.13.10 4.2.7.2.686 [id number] 2021-03-13 00:00:00 2021-03-13 00:00:00 Telephone Oni Pfeiffer [facility] [employer] [facility] & CHILD [facility] 1.2.840.114 350.1.13.10 4.2.7.2.686 [id number] General acute hospital 2021-03-06 12:45:00 2021-03-06 12:45:00 Outpatient MARLEE SHAY [facility] [id number] General acute hospital 2021-02-20 00:00:00 2021-02-20 00:00:00 Patient Outreach Lui Grier [facility] 1.2.840.114 350.1.13.10 4.2.7.2.686 [id number] 2021-02-20 00:00:00 2021-02-20 00:00:00 Patient Outreach Lui Grier [facility] 1.2.840.114 350.1.13.10 4.2.7.2.686 [id number] General acute hospital 2021-02-19 15:13:06 2021-02-19 15:44:33 Routine Visit Marlee Wang [facility] [employer] [facility] MATERNAL & CHILD [facility] 1.2.840.114 350.1.13.10 4.2.7.2.686 [id number] 2021-02-19 15:13:06 2021-02-19 15:44:33 Routine Visit Marlee Wang [facility] [employer] [facility] MATERNAL & CHILD [facility] 1.2.840.114 350.1.13.10 4.2.7.2.686 [id number] General acute hospital 2021-02-19 15:30:00 2021-02-19 15:30:00 Outpatient R MARLEE WANG [facility] [id number] General acute hospital 2021-02-16 00:00:00 2021-02-16 00:00:00 Telephone Marlee Wang [facility] [employer] [facility] MATERNAL & CHILD [facility] 1.2.840.114 350.1.13.10 4.2.7.2.686 [id number] 2021-02-16 00:00:00 2021-02-16 00:00:00 Telephone Tonia Wangily Skye [facility] [employer] [facility] MATERNAL & CHILD [facility] 1.2.840.114 350.1.13.10 4.2.7.2.686 [id number] General acute hospital 2021-02-09 12:59:19 2021-02-09 13:44:19 Service Loss Control Consultant Visit 1, [facility] [employer] [facility] MATERNAL & CHILD [facility] 1.2.840.114 350.1.13.10 4.2.7.2.686 [id number] 2021-02-09 12:59:19 2021-02-09 13:44:19 Service Loss Control Consultant Visit 1, [facility] Room Danette Gay [facility] [employer] [facility] MATERNAL & CHILD [facility] 1.2.840.114 350.1.13.10 4.2.7.2.686 [id number] General acute hospital 2021-02-09 13:36:38 2021-02-09 13:36:47 Service Loss Control Consultant Visit Lab/Pedi, [facility] [employer] [facility] MATERNAL & CHILD [facility] 1.2.840.114 350.1.13.10 4.2.7.2.686 [id number] 2021-02-09 13:36:38 2021-02-09 13:36:47 Service Loss Control Consultant Visit Lab/Pedi, [facility] Ida Levine [facility] [employer] [facility] MATERNAL & CHILD [facility] 1.2840.114 350.1.13.10 4.2.7.2.686 [id number] General acute hospital 2021-02-09 13:00:00 2021-02-09 13:00:00 Outpatient R [facility] [id number] General acute hospital 2021-02-06 12:46:38 2021-02-06 13:02:53 Routine Visit Marlee Wang [facility] [employer] [facility] MATERNAL & CHILD [facility] 1.2.840.114 350.1.13.10 4.2.7.2.686 [id number] 2021-02-06 12:46:38 2021-02-06 13:02:53 Routine Visit Marlee Wang [facility] [employer] [facility] & CHILD [facility] 1.2.840.114 350.1.13.10 4.2.7.2.686 [id number] General acute hospital 2021-02-06 12:45:00 2021-02-06 12:45:00 Outpatient R MARLEE WANG [facility] [id number] General acute hospital 2021-02-01 13:15:00 2021-02-01 13:15:00 Outpatient ONI SMART [facility] [id number] General acute hospital 2021-01-09 15:30:00 2021-01-09 15:30:00 Outpatient MARLEE SHAY [facility] [id number] General acute hospital 2020-12-14 00:00:00 2020-12-14 00:00:00 Telephone Marlee Wang [facility] [employer] [facility] & CHILD [facility] 1.2.840.114 350.1.13.10 4.2.7.2.686 [id number] 2020-12-14 00:00:00 2020-12-14 00:00:00 Telephone Marlee Wang [facility] [employer] [facility] CHILD [facility] 1.2.840.114 350.1.13.10 4.2.7.2.686 [id number] General acute hospital 2020-12-12 14:00:56 2020-12-12 14:47:42 Initial Visit Marlee Wang [facility] [employer] [facility] CHILD [facility] 1.2.840.114 350.1.13.10 4.2.7.2.686 [id number] General acute hospital 2020-12-12 14:00:56 2020-12-12 14:47:42 Initial Visit Marlee Wang [facility] [employer] [facility] & CHILD [facility] 1.2.840.114 350.1.13.10 4.2.7.2.686 [id number] 2020-12-12 13:15:00 2020-12-12 13:15:00 Outpatient MARLEE SHAY [facility] [id number] General acute hospital 2020-12-12 00:00:00 2020-12-12 00:00:00 Orders Only Doctor Unassigned, [place] [facility] 1.2.840.114 350.1.13.10 4.2.7.2.686 [id number] General acute hospital 2020-12-12 00:00:00 2020-12-12 00:00:00 Orders Only Doctor Unassigned, [place] [facility] 1.2.840.114 350.1.13.10 4.2.7.2.686 [id number] 2020-11-13 00:00:00 2020-11-13 00:00:00 Telephone Oni Pfeiffer [facility] [employer] [facility] & CHILD [facility] 1.2.840.114 350.1.13.10 4.2.7.2.686 [id number] General acute hospital 2020-11-03 13:06:08 2020-11-03 13:36:31 [facility] [employer] [facility] CHILD [facility] 1.2.840.114 350.1.13.10 4.2.7.2.686 [id number] General acute hospital 2020-11-03 13:00:00 2020-11-03 13:00:00 Outpatient ONI SMART [facility] [id number] General acute hospital 2020-10-20 11:03:11 2020-10-20 11:18:11 [facility] 1.2.840.114 350.1.13.10 4.2.7.2.686 [id number] General acute hospital 2020-10-20 11:00:00 2020-10-20 11:00:00 Outpatient ONI SMART [facility] [id number] General acute hospital 2020-10-16 00:00:00 2020-10-16 00:00:00 Telephone Oni Pfeiffer [facility] [employer] [facility] CHILD [facility] 1.2.840.114 350.1.13.10 4.2.7.2.686 [id number] General acute hospital 2020-06-22 12:55:22 2020-06-22 13:25:22 Office Visit Oni Pfeiffer [facility] [employer] [facility] CHILD [facility] 1.2.840.114 350.1.13.10 4.2.7.2.686 [id number] General acute hospital 2020-06-22 13:00:00 2020-06-22 13:00:00 Outpatient R ONI PFEIFFER [facility] [id number] General acute hospital 2020-06-19 13:47:50 2020-06-19 14:17:50 [facility] [employer] [facility] CHILD [facility] 1.2.840.114 350.1.13.10 4.2.7.2.686 [id number] General acute hospital 2020-06-19 13:30:00 2020-06-19 13:30:00 Outpatient R [facility] [id number] General acute hospital 2020-06-19 00:00:00 2020-06-19 00:00:00 Orders Only Doctor Unassigned, [place] [facility] 1..840.114 350.1.13.10 4.2.7.2.686 [id number] General acute hospital 2019-01-06 14:30:00 2019-01-06 14:30:00 [facility] [id number] [facility] 2018-12-16 14:30:00 2018-12-16 14:30:00 Outpatient [facility] [id number] [facility] 2018-12-10 11:09:00 2018-12-10 11:09:00 Outpatient [facility] [id number] [facility] 2018-04-06 14:45:00 2018-04-06 14:45:00 [facility]patient [facility] [id number] [facility] Results Test Description Test Time Test Comments Results Result Co mments Source [facility] & [id number] 20:13:00* Test Item Value Reference Range Interpretation Comme nts POCT U PROT (test code = 3259) trace Negative - Negat shlomo POCT U GLU (test code = 3256) negative Negative - Negati ve [facility] GLUCOSE & [id number] 20:13:00* Test Item Value Reference Range Interpretation Comme nts POCT U PROT (test code = 3259) trace Negative - Negat shlomo POCT U GLU (test code = 3256) negative Negative - Negati ve [facility] W/O SPECIFIC [id number] 19:31:00* Test Item Value Reference Range Interpretation Comme nts POCT PH U (test code = 3254) . 5-8 POCT U LEUK EST (test code = 3263) . Negative - N egative POCT U NIT (test code = 3262) . Negative - Negati ve POCT U PROT (test code = 3259) trace Negative - Negat shlomo POCT U GLU (test code = 3256) neg Negative - Negati ve POCT U KETONE (test code = 3258) . Negative - Neg ative POCT U BLD (test code = 3257) . Negative - Negati ve [facility] W/O SPECIFIC [id number] 19:06:00* Test Item Value Reference Range Interpretation Comme nts POCT PH U (test code = 3254) . 5-8 POCT U LEUK EST (test code = 3263) . Negative - Negative POCT U NIT (test code = 3262) . Negative - Negati ve POCT U PROT (test code = 3259) trace Negative - Negat shlomo POCT U GLU (test code = 3256) 1+ Negative - Negati ve POCT U KETONE (test code = 3258) . Negative - Neg ative POCT U BLD (test code = 3257) . Negative - Negati ve Lab Interpretation (test cod e = [id number]) Abnormal [facility] URINALYSIS W/O SPECIFIC [id number] 18:36:00* Test Item Value Reference Range Interpretation Comme nts POCT PH U (test code = 3254) . 5-8 POCT U LEUK EST (test code = 3263) . Negative - N egative POCT U NIT (test code = 3262) . Negative - Negati ve POCT U PROT (test code = 3259) trace Negative - Negat shlomo POCT U GLU (test code = 3256) neg Negative - Negati ve POCT U KETONE (test code = 3258) . Negative - Neg ative POCT U BLD (test code = 3257) . Negative - Negati ve [facility] URINALYSIS W/O SPECIFIC [id number] 18:36:00* Test Item Value Reference Range Interpretation Comme nts POCT PH U (test code = 3254) . 5-8 POCT U LEUK EST (test code = 3263) . Negative - N egative POCT U NIT (test code = 3262) . Negative - Negati ve POCT U PROT (test code = 3259) trace Negative - Negat shlomo POCT U GLU (test code = 3256) neg Negative - Negati ve POCT U KETONE (test code = 3258) . Negative - Neg ative POCT U BLD (test code = 3257) . Negative - Negati ve [facility] URINALYSIS W/O SPECIFIC [id number] 18:27:00* Test Item Value Reference Range Interpretation Comme nts POCT PH U (test code = 3254) . 5-8 POCT U LEUK EST (test code = 3263) . Negative - N egative POCT U NIT (test code = 3262) . Negative - Negati ve POCT U PROT (test code = 3259) Trace Negative - Negat shlomo POCT U GLU (test code = 3256) Neg Negative - Negati ve POCT U KETONE (test code = 3258) . Negative - Neg ative POCT U BLD (test code = 3257) . Negative - Negati ve [facility] URINALYSIS W/O SPECIFIC [id number] 18:10:00* Test Item Value Reference Range Interpretation Comme nts POCT PH U (test code = 3254) . 5-8 POCT U LEUK EST (test code = 3263) . Negative - Negative POCT U NIT (test code = 3262) . Negative - Negati ve POCT U PROT (test code = 3259) trace Negative - Negat shlomo POCT U GLU (test code = 3256) neg Negative - Negati ve POCT U KETONE (test code = 3258) . Negative - Neg ative POCT U BLD (test code = 3257) . Negative - Negati ve Lab Interpretation (test cod e = [id number]) Abnormal [facility] URINALYSIS W/O SPECIFIC [id number] 18:29:00* Test Item Value Reference Range Interpretation Comme nts POCT PH U (test code = 3254) . 5-8 POCT U LEUK EST (test code = 3263) . Negative - N egative POCT U NIT (test code = 3262) . Negative - Negati ve POCT U PROT (test code = 3259) Trace Negative - Negat shlomo POCT U GLU (test code = 3256) Neg Negative - Negati ve POCT U KETONE (test code = 3258) . Negative - Neg ative POCT U BLD (test code = 3257) . Negative - Negati ve [facility] URINALYSIS W/O SPECIFIC [id number] 20:27:00* Test Item Value Reference Range Interpretation Comme nts POCT PH U (test code = 3254) 7 mg/dl 5-8 POCT U LEUK EST (test code = 3263) trace Negative - Negative POCT U NIT (test code = 3262) neg Negative - Negati ve POCT U PROT (test code = 3259) trace Negative - Negat shlomo POCT U GLU (test code = 3256) neg Negative - Negati ve POCT U KETONE (test code = 3258) neg Negative - Neg ative POCT U BLD (test code = 3257) neg Negative - Negati ve [facility] URINALYSIS W/O SPECIFIC [id number] 18:51:00* Test Item Value Reference Range Interpretation Comme nts POCT PH U (test code = 3254) . 5-8 POCT U LEUK EST (test code = 3263) . Negative - Negative POCT U NIT (test code = 3262) . Negative - Negati ve POCT U PROT (test code = 3259) trace Negative - Negat shlomo POCT U GLU (test code = 3256) neg Negative - Negati ve POCT U KETONE (test code = 3258) . Negative - Neg ative POCT U BLD (test code = 3257) . Negative - Negati ve Lab Interpretation (test cod e = 54150-8) Abnormal [facility] [id number] 20:17:00* Test Item Value Reference Range Interpretation Comme nts POCT PREG (test code = 1605) Positive On board controls acceptable with C Line (test code = 3574) Yes POCT PREG LOT # (test code = 3575) POCT PREG TEST DATE ( test code = 3576) [facility] URINALYSIS W/O SPECIFIC [id number] 20:17:00* Test Item Value Reference Range Interpretation Comme nts POCT PH U (test code = 3254) 6 mg/dl 5-8 POCT U LEUK EST (test code = 3263) 2+ Negative - Negative POCT U NIT (test code = 3262) neg Negative - Negati ve POCT U PROT (test code = 3259) trace Negative - Negat shlomo POCT U GLU (test code = 3256) neg Negative - Negati ve POCT U KETONE (test code = 3258) small Negative - Neg ative POCT U BLD (test code = 3257) neg Negative - Negati ve [facility] [id number] 20:17:00* Test Item Value Reference Range Interpretation Comme nts POCT PREG (test code = 1605) Positive On board controls acceptable with C Line (test code = 3574) Yes POCT PREG LOT # (test code = 3575) POCT PREG TEST DATE ( test code = 3576) [facility] URINALYSIS W/O SPECIFIC [id number] 20:17:00* Test Item Value Reference Range Interpretation Comme nts POCT PH U (test code = 3254) 6 mg/dl 5-8 POCT U LEUK EST (test code = 3263) 2+ Negative - Negative POCT U NIT (test code = 3262) neg Negative - Negati ve POCT U PROT (test code = 3259) trace Negative - Negat shlomo POCT U GLU (test code = 3256) neg Negative - Negati ve POCT U KETONE (test code = 3258) small Negative - Neg ative POCT U BLD (test code = 3257) neg Negative - Negati ve [facility] [id number] 19:20:00* Test Item Value Reference Range Interpretation Comme nts POCT PREG (test code = 1605) Negative On board controls acceptable with C Line (test code = 3574) Yes POCT PREG LOT # (test code = 3575) POCT PREG TEST DATE ( test code = 3576) [facility] [id number] 17:32:00* Test Item Value Reference Range Interpretation Comme nts POCT PREG (test code = 1605) Negative On board controls acceptable with C Line (test code = 3574) Yes POCT PREG LOT # (test code = 3575) POCT PREG TEST DATE ( test code = 3576) [facility] [id number] 17:32:00* Test Item Value Reference Range Interpretation Comme nts POCT PREG (test code = 1605) Negative On board controls acceptable with C Line (test code = 3574) Yes POCT PREG LOT # (test code = 3575) POCT PREG TEST DATE ( test code = 3576) [facility] Notes Date/Time Note Provider Source 2024-01-04 20:00:08 [id number] dpTilKFU1mpZaUY uco41v+bQ1jUj5ofhzZd+tE4/ogJc6863-4 2-04T20:00:08 Called and spoke with patient. Let her know that the medication can be purchased over the counter. Patient verbalized understanding and has no further questions at this time. Encounter being closed. [id number] encounter [id number]:01:03Telephone encounter [id number]. [id number] for patient [id number]ou C-CDA narrative [id number] [id number] [id number] 0:01:031.2.840.430212.1.72.3.15|1.2 .840.5[id number] Lillian Sharif [facility], [facility]–1983 2024-01-04 16:18:53 cZ9rJK5Z7AjPv+MlPXOP ty7MOTug4wGh8pu YfzwB5AS5L3ScfHA4pdZcmGOfxYRd9116-2 01-04T16:18:53 Fernanda Morris is a 23 year old femaleIs calling in stating that the pharmacy will not fill Clotrimazole 1 % Lotn due to needing a PA, she wanted to see if she could get something else that the insurance will pay for. please advise [phone] signed by Chris Lala at 01/04/2024 4:24 PM [id number] encounter MmhwKA0961-98-40L38:24:08Telephone encounter [id number]. [id number] for patient doyb27403-9AhynNYJUADYXOLZLhujompcd C-CDA narrative [id number] [id number] [id number] 6:24:081.2.840.382429.1.72.3.15|1.2 .840.649705.1.13.104.2.7.2.727879_2 [id number] Chris Lala [facility]"
[2024-03-28] MEDS ORDERED: CEFTRIAXONE 1000 MG/VIAL ONE (20:28)
[2024-03-28] MEDS ORDERED: LIDOCAINE 1% MPF 2 ML AMPULE ONE (20:28)
[2024-03-28 21:05] LABS: Specific Gravity 1.033 (1.005-1.030)
--- NOTE | 2024-03-28 21:26 | EDPHYS ---
Physician Documentation [facility] Name: Fernanda Morris Age: 23 yrs Sex: Female : 2000 Arrival Date: 03/28/2024 Time: 19:55 Bed 21 Private MD: ED Physician Aneesh Carvajal HPI: 03/28 21:24 This 23 yrs old Female presents to ER via Ambulatory with complaints of Sore sp4 Throat, Pain. 03/29 21:33 Patient presents with acute onsets sore throat starting this morning. sp4 Historical: - Allergies: 03/28 20:13 No Known Allergies; nj1 - PMHx: 20:13 None; nj1 - Immunization history:: Client reports having NOT received the Covid vaccine. - Infectious Disease History:: Denies. - Social history:: Smoking status: Reported history of juuling and/or vaping. - Family history:: not pertinent. Vital Signs: 20:10 Pulse 76; Resp 18; Temp 97.9(O); Pulse Ox 100% on R/A; Weight 99.79 kg; Height 5 ft. 7 nj1 in. ; Pain 5/10; 20:10 Body Mass Index 34.46 (99.79 kg, 170.18 cm) nj1 20:10 Pain Scale: Adult nj1 MDM: 20:01 Patient medically screened. cp 03/28 20:22 Order name: Test, Urine; Complete Time: 21:24 sp4 Administered Medications: 20:35 Drug: Rocephin (cefTRIAXone) IM 1 grams IM once Route: IM; Site: left vastus lateralis; as6 21:21 Follow up: Response: No adverse reaction as6 Disposition Summary: 03/28/24 21:25 Discharge Ordered Notes: Location: Home sp4 Problem: new sp4 Symptoms: have improved sp4 Condition: Stable sp4 Diagnosis - Acute tonsillitis, unspecified sp4 Followup: sp4 - With: Private Physician - When: 7 - 10 days - Reason: Recheck today's complaints Discharge Instructions: - Discharge Summary Sheet sp4 - Tonsillitis, Bzsp-zh-Cxms sp4 Forms: - Patient Portal Instructions sp4 Prescriptions: - Ibuprofen 800 mg Oral Tablet - take 1 tablet ORAL route every 8 hours As needed take with food; 30 tablet; sp4 Refills: 0, Product Selection Permitted - Zithromax Z-Lux 250 mg Oral Tablet - take 1 tablet ORAL route as directed for 5 days Day 1 - take two (2) tablets sp4 one time. Day 2, 3, 4 , 5 take one (1) tablet once daily.; 6 tablet; Refills: 0, Product Selection Permitted Addendum: 03/29/2024 21:35 Addendum: . s p4 Signatures: Dispatcher [employer] EDWashington Savage PA PA cp Slawson, Ashby, RN RN as6 Aneesh Carvajal MD MD sp4 Opal Mahmood RN RN nj1
--- NOTE | 2024-03-28 21:26 | ER ---
Nurse's Notes [facility] [place], [place] Name: Fernanda Morris Age: 23 yrs Sex: Female : 2000 Arrival Date: 03/28/2024 Time: 19:55 Bed 21 Private MD: Diagnosis: Acute tonsillitis, unspecified Presentation: 03/28 20:10 Chief complaint: Patient states: Sore throat today, no fever. nj1 20:10 Method Of Arrival: Ambulatory nj 20:10 Coronavirus screen: Vaccine status: Patient reports being unvaccinated. Ebola Screen: nj1 Patient denies travel to an Ebola-affected area in the 21 days before illness onset. Initial Sepsis Screen: Does the patient meet any 2 criteria? No. Patient's initial sepsis screen is negative. Does the patient have a suspected source of infection? No. Patient's initial sepsis screen is negative. Risk Assessment: Do you want to hurt yourself or someone else? Patient reports no desire to harm self or others. Onset of symptoms was March 28, 2024. 20:10 Acuity: EDUARDO 4 nj1 Historical: - Allergies: 20:13 No Known Allergies; nj1 - PMHx: 20:13 None; nj1 - Immunization history:: Client reports having NOT received the Covid vaccine. - Infectious Disease History:: Denies. - Social history:: Smoking status: Reported history of juuling and/or vaping. - Family history:: not pertinent. Screenin:16 [facility] ED Fall Risk Assessment (Adult) History of falling in the last 3 months, as6 including since admission No falls in past 3 months (0 pts) Confusion or Disorientation No (0 pts) Intoxicated or Sedated No (0 pts) Impaired Gait No (0 pts) Mobility Assist Device Used No (0 pt) Altered Elimination No (0 pt) Score/Fall Risk Level 0 - 2 = Low Risk Oriented to surroundings, Maintained a safe environment, Educated pt \T\ family on fall prevention, incl call for assistance when getting out of bed, Assessed \T\ reinforced patient's understanding of fall precautions. Abuse screen: Denies threats or abuse. Denies injuries from another. Nutritional screening: No deficits noted. Tuberculosis screening: No symptoms or risk factors identified. Assessment: 20:30 General: Appears in no apparent distress. Behavior is calm, cooperative. Pain: as6 Complains of pain in left aspect of posterior pharynx and right aspect of posterior pharynx. Neuro: Level of Consciousness is awake, alert, obeys commands, Oriented to person, place, time, situation. Cardiovascular: Capillary refill < 3 seconds Patient's skin is warm and dry. Respiratory: Respiratory effort is even, unlabored, Respiratory pattern is regular, symmetrical. GI: No deficits noted. No signs and/or symptoms were reported involving the gastrointestinal system. : No deficits noted. No signs and/or symptoms were reported regarding the genitourinary system. EENT: Throat is reddened. Derm: Skin is intact, is healthy with good turgor. Musculoskeletal: Circulation, motion, and sensation intact. Vital Signs: 20:10 Pulse 76; Resp 18; Temp 97.9(O); Pulse Ox 100% on R/A; Weight 99.79 kg; Height 5 ft. 7 nj1 in. ; Pain 5/10; 20:10 Body Mass Index 34.46 (99.79 kg, 170.18 cm) nj1 20:10 Pain Scale: Adult nj1 ED Course: 19:58 Patient arrived in ED. gm2 20:01 Washington Suazo PA is PHCP. cp 20:01 Aneesh Carvajal MD is Attending Physician. cp 20:13 Triage completed. nj1 20:13 Arm band placed on. nj1 20:25 Jerardo Baca, ANGI is Primary Nurse. as6 20:35 Test, Urine Sent. as6 21:16 Bed in low position. Call light in reach. as6 21:18 No provider procedures requiring assistance completed. Patient did not have IV access as6 during this emergency room visit. 21:34 Provided Education on: rx teaching . as6 Administered Medications: 20:35 Drug: Rocephin (cefTRIAXone) IM 1 grams IM once Route: IM; Site: left vastus lateralis; as6 21:21 Follow up: Response: No adverse reaction as6 Medication: 21:16 VIS not applicable for this client. as6 Outcome: 21:25 Discharge ordered by . sp4 21:34 Discharged to home ambulatory, with family, as6 21:34 Condition: stable 21:34 Discharge instructions given to patient, Instructed on discharge instructions, follow up and referral plans. medication usage, Demonstrated understanding of instructions, follow-up care, medications, Prescriptions given X 2, 21:34 Patient left the ED. as6 Signatures: Washington Suazo PA PA cp Slawson, Ashby, RN RN as6 Aneesh Carvajal MD MD sp4 Opal Mahmood RN RN nj1 Brittny Hatch gm2
[2024-03-28 22:03] VITALS: TEMP 97.9; O2SAT 100
== END 2024-03-28 21:34 | disposition home or self-care (01) ==
LOC: ER 19:55
DX: J03.90 Acute tonsillitis, unspecified (principal); Z28.310 Unvaccinated for COVID-19
CPT/HCPCS: 81025; 96372; 99284; J0696